=== PATIENT | female | born 2000 ===

== ENCOUNTER 2021-07-11 13:22 | Emergency (ER) | payer OTHER ==
[~2021-07-11] VITALS: Ht 177.8 cm; Wt 63.5 kg
[2021-07-11 14:37] LABS: Basophils # (auto) 0 10 ^3/uL (0-0.2); Basophils % (auto) 0.8 % (0.0-2.0); Eosinophils # (auto) 0.1 10 ^3/uL (0-0.8); Eosinophils % (auto) 2.3 % (0.0-7.0); Hemoglobin 13.2 g/dL (12.2-16.2); Lymphocytes # (auto) 0.9 10 ^3/uL (0.4-5.4); Lymphocytes % (auto) 18.7 % (10.0-50.0); Mean Corpuscular Hemoglobin 30.5 pg (28.0-32.0); Mean Corpuscular Hgb Conc. 33.9 g/dL (32.0-36.0); Mean Corpuscular Volume 89.8 fL (80.0-100.0); Monocytes # (auto) 0.5 10 ^3/uL (0-1.3); Monocytes % (auto) 9.6 % (0.0-12.0); Neutrophils # (auto) 3.5 10 ^3/uL (1.6-8.6); Neutrophils % (auto) 68.6 % (37.0-80.0); Nucleated Red Blood Cells % 0.5 %; Red Blood Cells 4.34 10^6/uL (4.0-5.20); Red Cell Distribution Width 12.9 % (11.8-14.3); White Blood Cell 5.1 10^3/uL (4.4-10.8)
[2021-07-11] MEDS ORDERED: ACETAMINOPHEN 325 MG TAB PO ONE (14:45)
[2021-07-11 14:56] LABS: Albumin 3.9 g/dL (3.4-5.0); Calcium 8.7 mg/dL (8.5-10.1); Potassium 4.2 mmol/L (3.5-5.1)
[2021-07-11 15:11] LABS: BUN/Creatinine Ratio 13.2; Bilirubin, Total 0.3 mg/dL (0.2-1.0); Total Protein 6.5 g/dL (6.4-8.2)
[2021-07-11 16:21] VITALS: BP 112/67
== END 2021-07-11 18:03 | disposition home or self-care (01) ==
LOC: ER 13:22 → EDBD 13:22 → ER 18:03
DX: R56.9 Unspecified convulsions (principal)
CPT/HCPCS: 36415; 80053; 84702; 85025